=== PATIENT | male | born 1970 | race Caucasian/White ===

== ENCOUNTER 2022-05-03 15:36 | Emergency (ER) | payer MEDICARE ==
[~2022-05-03] VITALS: Ht 172.7 cm; Wt 111.0 kg
[2022-05-03 15:38] VITALS: BP 134/100
== END 2022-05-03 16:00 | disposition home or self-care (01) ==
LOC: ER 15:36
DX: Z04.89 Encounter for examination and observation for other specified reasons (principal)
CPT/HCPCS: 99281

== ENCOUNTER 2022-05-03 20:28 | Emergency (ER) | payer MEDICARE ==
[~2022-05-03] VITALS: Ht 167.6 cm; Wt 91.0 kg
[2022-05-03 20:31] VITALS: BP 136/84
[2022-05-03] MEDS ORDERED: SODIUM CHLORIDE 0.9% 1,000 ML IV ONE (21:00)
== END 2022-05-03 21:40 | disposition left against medical advice (07) ==
LOC: ER 20:28
DX: R53.1 Weakness (principal); F31.9 Bipolar disorder, unspecified; R45.851 Suicidal ideations
CPT/HCPCS: 99283; J7030

== ENCOUNTER 2023-06-08 07:26 | Emergency (ER) | payer MEDICARE, MEDICAID ==
[~2023-06-08] VITALS: Ht 172.7 cm; Wt 97.0 kg
[2023-06-08 07:36] VITALS: O2SAT 98
[2023-06-08 07:45] VITALS: BP 132/72; PULSE 84; RESP 18; TEMP 98.4
[2023-06-09] MEDS ORDERED: IBUP-2029 MT (04:19)
== END 2023-06-08 08:15 | disposition left against medical advice (07) ==
LOC: ER 07:26
DX: R19.7 Diarrhea, unspecified (principal); Z88.8 Allergy status to other drugs, medicaments and biological substances
CPT/HCPCS: 99281

== ENCOUNTER 2023-06-08 10:34 | Emergency (ER) | payer MEDICARE, MEDICAID ==
[2023-06-09] MEDS ORDERED: IBUP-2029 MT (04:19)
== END 2023-06-08 11:41 | disposition left against medical advice (07) ==
LOC: ER 10:34
DX: R19.7 Diarrhea, unspecified (principal)
CPT/HCPCS: 99281

== ENCOUNTER 2023-06-08 12:29 | Emergency (ER) | payer MEDICARE, MEDICAID ==
[~2023-06-08] VITALS: Ht 172.7 cm; Wt 116.0 kg
[2023-06-08 12:32] VITALS: BP 137/83; PULSE 84; RESP 16; TEMP 98.8; O2SAT 99
[2023-06-08 13:48] LABS: CHLORIDE 105 mEq/L (98-107); INDEX HEMOLYSI 1 (1-3); INDEX ICTERIC 1 (1-4); INDEX LIPEMIC 1 (1-3); POTASSIUM 3.2 mEq/L (3.5-5.1); SODIUM 134 mEq/L (136-145)
[2023-06-08 13:50] LABS: HEMATOCRIT. 42.5 % (42.0-52.0); HEMOGLOBIN. 14.4 g/dL (14.0-18.0); MEAN CORPUSCULAR HEMOGLOBIN 32.6 pg (28.0-32.0); MEAN CORPUSCULAR VOLUME 95.8 fL (80.0-94.0); MEAN PLATELET VOLUME 8.2 fl (7.4-10.4); PLATELET 448 x1000/uL (130-400); RED BLOOD CELL COUNT 4.43 mill/uL (4.7-6.1); RED CELL DISTRIBUTION WIDTH 13.1 % (11.6-14.6); WHITE BLOOD COUNT 16.3 x1000/uL (4.5-11.0)
[2023-06-08 13:53] LABS: DIFFERENTIAL COMMENT 1
[2023-06-08 13:59] LABS: ALANINE AMINOTRANSFERASE 27 IU/L (13-61); ASPARTATE AMINOTRANSFERASE 21 IU/L (15-37); BILIRUBIN TOTAL 0.5 mg/dL (0.1-1.0); CALCIUM 8.6 mg/dL (8.5-10.1); CARBON DIOXIDE 17 mEq/L (21-32); CREATININE 1.3 mg/dL (0.6-1.3); ETHANOL BLOOD < 10 mg/dL (-10); GLUCOSE 145 mg/dL (70-105); PROTEIN TOTAL 7.7 g/dL (6.0-8.3); TROPONIN I HIGH SENSITIVITY 7 ng/L (<78); UREA NITROGEN BLOOD 30 mg/dL (7-21)
[2023-06-08] MEDS ORDERED: SODIUM CHLORIDE 0.9% 1,000 ML IV ONE (14:15)
[2023-06-08 14:20] LABS: PLATELET ESTIMATE INCREASED
[2023-06-08] MEDS ORDERED: SODIUM CHLORIDE 0.9% 1000ML BAG (SEPSIS BOLUS) IV ONE (14:45)
[2023-06-08] MEDS ORDERED: PIPERACILLIN/TAZ 3.375G PREMIX 50 ML IV ONE (14:45)
[2023-06-08] MEDS ORDERED: VANCOMYCIN 1G PREMIX 200 ML IV ONE (14:45)
[2023-06-08] MEDS ORDERED: HYDROCODONE/ACETAMINOPHEN 5/325MG TABLET PO PRN (15:45)
[2023-06-08] MEDS ORDERED: DEXT 5%/0.45% NACL KCL 40MEQ/L 1,000 ML IV ONE (15:45)
[2023-06-08] MEDS ORDERED: MORPHINE SULFATE 2 MG/ML CPJ (NOT FOR IM USE) IV PRN (15:45)
[2023-06-08] MEDS ORDERED: LORAZEPAM 2MG/ML CPJ IV PRN (15:45)
[2023-06-08] MEDS ORDERED: ONDANSETRON HCL 4MG/2ML INJ IV PRN (15:45)
[2023-06-08] MEDS ORDERED: ACETAMINOPHEN 650MG/20.3ML UDC GT PRN (15:45)
[2023-06-08] MEDS ORDERED: NALOXONE HCL 0.4MG/ML VIAL IV PRN (16:00)
[2023-06-08] MEDS ORDERED: LEVOFLOXACIN 500MG PREMIX 100 ML IV SCH (16:00)
[2023-06-08] MEDS ORDERED: SODIUM CHLORIDE 0.9% 1,000 ML IV SCH (16:00)
[2023-06-08] MEDS ORDERED: KCL 20MEQ/100ML X 2 FOR TOTAL KCL 40MEQ/200ML IV SCH (16:15)
[2023-06-08] MEDS ORDERED: ENOXAPARIN 40MG/0.4ML SYR SUBCUT SCH (21:00)
[2023-06-08] MEDS ORDERED: METRONIDAZOLE 500 MG PREMIX 100 ML IV SCH (22:00)
[2023-06-09] MEDS ORDERED: IBUP-2029 MT (04:19)
[2023-06-09] MEDS ORDERED: FOLIC ACID 1MG TABLET PO SCH (09:00)
[2023-06-09] MEDS ORDERED: MULTIVITAMINS,THER W-MINERALS TABLET PO SCH (09:00)
== END 2023-06-08 21:30 | disposition left against medical advice (07) ==
LOC: ER 13:35 → EDBEDREQTM 15:33 → EDBEDREQ 15:33 → EDBEDREQSVC 16:49 → ER 21:30 → CANBEDREQ 22:26
DX: A41.9 Sepsis, unspecified organism (principal); R65.20 Severe sepsis without septic shock; Z88.8 Allergy status to other drugs, medicaments and biological substances
CPT/HCPCS: 80053; 80320; 83605; 85025; 87040; 84484; 36415; 99291; J7030; G0480

== ENCOUNTER 2023-06-08 20:49 | Emergency (ER) | payer MEDICARE, MEDICAID ==
[~2023-06-08] VITALS: Ht 172.7 cm; Wt 116.0 kg
[2023-06-08 20:50] VITALS: BP 145/79; PULSE 105; RESP 14; TEMP 98.1; O2SAT 96
[2023-06-08] MEDS ORDERED: SODIUM CHLORIDE 0.9% 1,000 ML IV ONE (21:30)
[2023-06-08] MEDS ORDERED: FOLIC ACID 1 MG, THIAMINE HCL 100 MG, MVI, ADULT NO.1 10 ML in DEXTROSE 5% WATER 1,000 ML IV ONE ×4 (21:30)
[2023-06-08] MEDS ORDERED: LORAZEPAM 2MG/ML CPJ IV ONE (21:30)
[2023-06-08] MEDS ORDERED: ONDANSETRON HCL 4MG/2ML INJ IV ONE (21:45)
[2023-06-08 22:06] LABS: HEMATOCRIT. 40.5 % (42.0-52.0); HEMOGLOBIN. 13.6 g/dL (14.0-18.0); MEAN CORPUSCULAR HEMOGLOBIN 32.4 pg (28.0-32.0); MEAN CORPUSCULAR HGB CONC 33.7 g/dL (31.0-37.0); MEAN CORPUSCULAR VOLUME 96.3 fL (80.0-94.0); MEAN PLATELET VOLUME 8.2 fl (7.4-10.4); PLATELET 422 x1000/uL (130-400); RED BLOOD CELL COUNT 4.21 mill/uL (4.7-6.1); RED CELL DISTRIBUTION WIDTH 13.1 % (11.6-14.6); WHITE BLOOD COUNT 13.7 x1000/uL (4.5-11.0)
[2023-06-08 22:07] LABS: DIFFERENTIAL COMMENT 1
[2023-06-08 22:33] LABS: CHLORIDE 104 mEq/L (98-107); INDEX HEMOLYSI 1 (1-3); INDEX ICTERIC 1 (1-4); INDEX LIPEMIC 1 (1-3); SODIUM 134 mEq/L (136-145)
[2023-06-08 22:45] LABS: ALANINE AMINOTRANSFERASE 30 IU/L (13-61); ALBUMIN 3.6 g/dL (3.4-5.0); ASPARTATE AMINOTRANSFERASE 26 IU/L (15-37); BILIRUBIN TOTAL 0.4 mg/dL (0.1-1.0); CALCIUM 8.1 mg/dL (8.5-10.1); CARBON DIOXIDE 19 mEq/L (21-32); CREATININE 1.1 mg/dL (0.6-1.3); ETHANOL BLOOD < 10 mg/dL (-10); GLUCOSE 137 mg/dL (70-105); NT PRO B-TYPE NATRIURETIC PEP 284 pg/mL (5-125); PROTEIN TOTAL 7.1 g/dL (6.0-8.3); TROPONIN I HIGH SENSITIVITY 7 ng/L (<78); UREA NITROGEN BLOOD 28 mg/dL (7-21)
[2023-06-08 22:46] LABS: PLATELET ESTIMATE INCREASED
[2023-06-08] MEDS ORDERED: POTASSIUM CHLORIDE 20MEQ TABLET SR PO ONE (23:45)
[2023-06-09] MEDS ORDERED: IBUP-2029 MT (04:19)
== END 2023-06-08 23:39 | disposition left against medical advice (07) ==
LOC: ER 20:49
DX: F10.239 Alcohol dependence with withdrawal, unspecified (principal); F10.229 Alcohol dependence with intoxication, unspecified; I10 Essential (primary) hypertension; E11.9 Type 2 diabetes mellitus without complications; Y90.0 Blood alcohol level of less than 20 mg/100 ml; Z88.8 Allergy status to other drugs, medicaments and biological substances
CPT/HCPCS: 80053; 80320; 83880; 83735; 85025; 84484; 36415; 71045; 93005; 99285; J7030; J3411; J3490; J7070; G0480

== ENCOUNTER 2023-06-09 00:28 | Emergency (ER) | payer MEDICARE, MEDICAID ==
[~2023-06-09] VITALS: Ht 172.7 cm; Wt 109.9 kg
[2023-06-09 01:21] VITALS: TEMP 97.7; O2SAT 100
[2023-06-09] MEDS ORDERED: IBUP-2029 MT (04:19)
[2023-06-09] MEDS ORDERED: IBUPROFEN 600MG TABLET PO ONE (04:30)
[2023-06-09 04:52] VITALS: BP 143/90; PULSE 99
[2023-06-09] MEDS ORDERED: QUETIAPINE FUMARATE 50MG TABLET PO SCH (05:00)
[2023-06-09] MEDS ORDERED: QUETIAPINE FUMARATE 50MG TABLET PO NR (05:15)
== END 2023-06-09 04:55 | disposition home or self-care (01) ==
LOC: ER 00:28
DX: M79.672 Pain in left foot (principal); M79.671 Pain in right foot; G47.00 Insomnia, unspecified; F17.200 Nicotine dependence, unspecified, uncomplicated; E11.9 Type 2 diabetes mellitus without complications; F10.21 Alcohol dependence, in remission; I10 Essential (primary) hypertension; Z00.00 Encounter for general adult medical examination without abnormal findings
CPT/HCPCS: 73630; 99283

== ENCOUNTER 2023-06-09 09:50 | Emergency (ER) | payer MEDICARE, MEDICAID ==
[~2023-06-09] VITALS: Ht 172.7 cm; Wt 91.0 kg
[~2023-06-09 09:50] MED LIST: IBUP-2029 MT
[2023-06-09 09:52] VITALS: O2SAT 100
[2023-06-09 10:37] LABS: BASOPHILS % 0.1 % (0.0-2.0); EOSINOPHILS % 0.7 % (0.0-5.0); HEMATOCRIT. 40.6 % (42.0-52.0); HEMOGLOBIN. 14.3 g/dL (14.0-18.0); LYMPHOCYTES % 15.9 % (20.0-50.0); MEAN CORPUSCULAR HEMOGLOBIN 33.2 pg (28.0-32.0); MEAN CORPUSCULAR HGB CONC 35.1 g/dL (31.0-37.0); MEAN CORPUSCULAR VOLUME 94.5 fL (80.0-94.0); MEAN PLATELET VOLUME 8.1 fl (7.4-10.4); MONOCYTES % 12.4 % (2.0-8.0); NEUTROPHILS % 70.9 % (40.0-76.0); PLATELET 361 x1000/uL (130-400); RED CELL DISTRIBUTION WIDTH 13.4 % (11.6-14.6); WHITE BLOOD COUNT 9.4 x1000/uL (4.5-11.0)
[2023-06-09 10:42] LABS: CHLORIDE 103 mEq/L (98-107); INDEX HEMOLYSI 1 (1-3); INDEX ICTERIC 1 (1-4); INDEX LIPEMIC 1 (1-3); POTASSIUM 3.5 mEq/L (3.5-5.1); SODIUM 134 mEq/L (136-145)
[2023-06-09 10:47] LABS: INR 1.1; PROTHROMBIN TIME 11.4 sec (9.6-11.0)
[2023-06-09 10:50] LABS: ALANINE AMINOTRANSFERASE 30 IU/L (13-61); ALBUMIN 3.6 g/dL (3.4-5.0); ASPARTATE AMINOTRANSFERASE 25 IU/L (15-37); BILIRUBIN TOTAL 0.4 mg/dL (0.1-1.0); CALCIUM 8.2 mg/dL (8.5-10.1); CARBON DIOXIDE 25 mEq/L (21-32); CREATININE 0.9 mg/dL (0.6-1.3); ETHANOL BLOOD < 10 mg/dL (-10); GLUCOSE 115 mg/dL (70-105); PROTEIN TOTAL 7.2 g/dL (6.0-8.3); UREA NITROGEN BLOOD 21 mg/dL (7-21)
[2023-06-09 13:08] VITALS: BP 126/82; PULSE 78; RESP 16; TEMP 98.7
== END 2023-06-09 13:24 | disposition home or self-care (01) ==
LOC: ER 09:50
DX: R10.9 Unspecified abdominal pain (principal); I10 Essential (primary) hypertension; E11.9 Type 2 diabetes mellitus without complications; Z88.8 Allergy status to other drugs, medicaments and biological substances
CPT/HCPCS: 36415; 71045; 74176; 80053; 80320; 83605; 84145; 85025; 99285; G0480

== ENCOUNTER 2023-06-09 15:14 | Emergency (ER) | payer MEDICARE, MEDICAID ==
[~2023-06-09] VITALS: Ht 162.6 cm; Wt 113.0 kg
[2023-06-09 15:17] VITALS: BP 142/90; PULSE 100; RESP 20; TEMP 98; O2SAT 98
== END 2023-06-09 20:54 | disposition left against medical advice (07) ==
LOC: ER 15:14
DX: T65.893A Toxic effect of other specified substances, assault, initial encounter (principal); E11.9 Type 2 diabetes mellitus without complications; I10 Essential (primary) hypertension; F10.20 Alcohol dependence, uncomplicated; Z88.8 Allergy status to other drugs, medicaments and biological substances; Y92.89 Other specified places as the place of occurrence of the external cause; Y90.8 Blood alcohol level of 240 mg/100 ml or more
CPT/HCPCS: 99283

== ENCOUNTER 2025-06-26 07:05 | Emergency (ER) | payer OTHER, BC, MEDICAID ==
[~2025-06-26] VITALS: Ht 175.3 cm; Wt 100.0 kg
[2025-06-26 07:18] VITALS: TEMP 36.9; O2SAT 98
[2025-06-26 08:18] LABS: BASOPHILS % 0.4 % (0.0-2.0); EOSINOPHILS % 0.4 % (0.0-5.0); HEMATOCRIT. 35.9 % (42.0-52.0); HEMOGLOBIN. 12.3 g/dL (14.0-18.0); LYMPHOCYTES % 13.5 % (20.0-50.0); MEAN PLATELET VOLUME 8.3 fl (7.4-10.4); MONOCYTES % 7.7 % (2.0-8.0); NEUTROPHILS % 78.0 % (40.0-76.0); PLATELET 347 x1000/uL (130-400); RED BLOOD CELL COUNT 3.95 mill/uL (4.7-6.1); RED CELL DISTRIBUTION WIDTH 13.0 % (11.6-14.6)
[2025-06-26 08:37] LABS: CREATININE 0.9 mg/dL (0.6-1.3); UREA NITROGEN BLOOD 15 mg/dL (9-23)
[2025-06-26 08:38] LABS: ETHANOL BLOOD < 10 mg/dL (<10)
[2025-06-26 12:00] VITALS: BP 142/76; PULSE 82; RESP 17; O2SAT 97
== END 2025-06-26 12:07 ==
LOC: ER 07:05
DX: H57.10 Ocular pain, unspecified eye (principal); N48.89 Other specified disorders of penis; E11.9 Type 2 diabetes mellitus without complications; I10 Essential (primary) hypertension; F19.90 Other psychoactive substance use, unspecified, uncomplicated; Z20.822 Contact with and (suspected) exposure to COVID-19
CPT/HCPCS: 36415; 80048; 80320; 85025; 87426; 93005; 99284; G0480